=== PATIENT | female | born 1995 | race Caucasian/White ===

== ENCOUNTER 2018-03-03 17:14 | Emergency (ER) | payer OTHER ==
[~2018-03-03] VITALS: Ht 162.6 cm; Wt 81.0 kg
[2018-03-03] MEDS ORDERED: IBUPROFEN 600MG TABLET PO ONE (20:45)
[2018-03-03 20:57] VITALS: BP 120/80
== END 2018-03-03 21:29 | disposition home or self-care (01) ==
LOC: ER 17:14
DX: M54.89 Other dorsalgia (principal)
CPT/HCPCS: 99282